=== PATIENT | male | born 1940 | race African-American/Black ===

== ENCOUNTER 2023-04-14 20:05 | Emergency (ER) | payer MEDICARE, BC ==
[~2023-04-14] VITALS: Ht 180.3 cm; Wt 79.0 kg
[2023-04-14 20:44] VITALS: O2SAT 99
[2023-04-14] MEDS ORDERED: IBUPROFEN 600MG TABLET PO STA (22:34)
[2023-04-14 23:15] VITALS: BP 126/67
[2023-04-14 23:22] LABS: BASOPHILS % 0.5 % (0.0-2.0); EOSINOPHILS % 0.6 % (0.0-5.0); HEMATOCRIT. 39.5 % (42.0-52.0); HEMOGLOBIN. 12.9 g/dL (14.0-18.0); MEAN CORPUSCULAR HEMOGLOBIN 30.1 pg (28.0-32.0); MEAN CORPUSCULAR HGB CONC 32.7 g/dL (31.0-37.0); MEAN CORPUSCULAR VOLUME 91.9 fL (80.0-94.0); MEAN PLATELET VOLUME 7.1 fl (7.4-10.4); MONOCYTES % 10.2 % (2.0-8.0); NEUTROPHILS % 64.7 % (40.0-76.0); PLATELET 225 x1000/uL (130-400); RED CELL DISTRIBUTION WIDTH 13.6 % (11.6-14.6); WHITE BLOOD COUNT 5.9 x1000/uL (4.5-11.0)
[2023-04-14 23:31] LABS: CHLORIDE 100 mEq/L (98-107); INDEX HEMOLYSI 1 (1-3); INDEX ICTERIC 1 (1-4); INDEX LIPEMIC 1 (1-3); SODIUM 131 mEq/L (136-145)
[2023-04-14 23:35] LABS: CLARITY URINE CLEAR (CLEAR); COLOR URINE YELLOW (YELLOW); GLUCOSE URINE NEGATIVE (NEGATIVE); KETONES URINE NEGATIVE (NEGATIVE); LEUKOCYTE ESTERASE URINE NEGATIVE (NEGATIVE); NITRITE URINE NEGATIVE (NEGATIVE); OCCULT BLOOD URINE NEGATIVE (NEGATIVE); PROTEIN URINE NEGATIVE (NEGATIVE); SPECIFIC GRAVITY URINE 1.016 (1.005-1.030); UROBILINOGEN URINE 0.2 E.U./dL (0.2-1.0)
[2023-04-14 23:41] LABS: ALANINE AMINOTRANSFERASE 29 IU/L (13-61); ALBUMIN 3.5 g/dL (3.4-5.0); ASPARTATE AMINOTRANSFERASE 16 IU/L (15-37); BILIRUBIN TOTAL 0.5 mg/dL (0.1-1.0); CALCIUM 8.7 mg/dL (8.5-10.1); CARBON DIOXIDE 27 mEq/L (21-32); GLUCOSE 117 mg/dL (70-105); PROTEIN TOTAL 7.7 g/dL (6.0-8.3); UREA NITROGEN BLOOD 14 mg/dL (7-21)
[2023-04-14] MEDS ORDERED: IBUP-2029 MT (23:58)
[2023-04-14] MEDS ORDERED: CYCL10TA21 MT (23:58)
[2023-04-15 00:28] VITALS: PULSE 90; RESP 16; TEMP 98
== END 2023-04-15 00:29 | disposition home or self-care (01) ==
LOC: ER 20:05
DX: M54.50 Low back pain, unspecified (principal)
CPT/HCPCS: 36415; 72100; 80053; 81003; 85025; 99284